=== PATIENT | female | born 1985 | race American Indian/Alaskan Native ===

== ENCOUNTER 2017-05-05 23:34 | Emergency (ER) | payer MEDICAID ==
[2017-05-06] MEDS ORDERED: CLEOCIN 600 MG/50 mL 600 MG/50 ML BAG IV ONE (03:01)
[2017-05-06] MEDS ORDERED: DILAUDID IV ONE (03:01)
[2017-05-06] MEDS ORDERED: ATIVAN IV ONE (03:02)
[2017-05-06] MEDS ORDERED: DILAUDID ONE (03:08)
--- NOTE | 2017-05-06 03:17 | Emergency Department Report ---
ED ENT HPI - General Chief complaint: Dental/Oral Stated complaint: MOUTH PAIN Time Seen by Provider: 05/06/17 02:59 Source: patient Mode of arrival: Ambulatory Limitations: No Limitations - History of Present Illness Initial comments: 31-year-old -[place] female comes in for complaint of an abscess at the mouth. Patient reports that she was seen by her dentist today and was placed on amoxicillin and Tylenol 3. Patient reports that the pain is too much. She says that the abscess is getting larger. - Related Data Previous Rx's Medication Instructions Recorded Last Taken Type Clindamycin [Clindamycin CAP] 300 mg PO Q8H 10 Days #30 cap 05/06/17 Unknown Rx HYDROcodone/ACETAMINOPHEN [[place] 1 each PO Q6H #12 tablet 05/06/17 Unknown Rx 5-325 Tablet] Allergies Allergy/AdvReac Type Severity Reaction Status Date / Time No Known Allergies Allergy Unverified 05/06/17 01:20 ED Dental HPI - General Chief complaint: Dental/Oral Stated complaint: MOUTH PAIN Time Seen by Provider: 05/06/17 02:59 Source: patient Mode of arrival: Ambulatory Limitations: No Limitations - Related Data Previous Rx's Medication Instructions Recorded Last Taken Type Clindamycin [Clindamycin CAP] 300 mg PO Q8H 10 Days #30 cap 05/06/17 Unknown Rx HYDROcodone/ACETAMINOPHEN [[place] 1 each PO Q6H #12 tablet 05/06/17 Unknown Rx 5-325 Tablet] Allergies Allergy/AdvReac Type Severity Reaction Status Date / Time No Known Allergies Allergy Unverified 05/06/17 01:20 ED Review of Systems ROS: Stated complaint: MOUTH PAIN Other details as noted in HPI ED Past Medical Hx - Past Medical History Previous Medical History?: No - Surgical History Past Surgical History?: Yes Additional Surgical History: x3 - Social History Smoking Status: Current Every Day Smoker Substance Use Type: Marijuana - Medications Home Medications: Home Medications Medication Instructions Recorded Confirmed Last Taken Type Clindamycin [Clindamycin CAP] 300 mg PO Q8H 10 Days #30 cap 05/06/17 Unknown Rx HYDROcodone/ACETAMINOPHEN [[place] 1 each PO Q6H #12 tablet 05/06/17 Unknown Rx 5-325 Tablet] ED Physical Exam - General Limitations: No Limitations ED Course Vital Signs 05/06/17 05/06/17 05/06/17 01:20 03:20 04:49 Temperature 98.8 F Pulse Rate 93 H Respiratory 18 18 12 Rate Blood Pressure 132/68 O2 Sat by Pulse 97 Oximetry 05/06/17 05/06/17 05/06/17 04:51 04:55 05:01 Temperature Pulse Rate 86 85 81 Respiratory 8 L 10 L 12 Rate Blood Pressure O2 Sat by Pulse Oximetry 05/06/17 05/06/17 05/06/17 05:05 05:11 05:15 Temperature Pulse Rate 81 83 79 Respiratory 11 L 11 L 13 Rate Blood Pressure 109/75 115/75 O2 Sat by Pulse Oximetry 05/06/17 05/06/17 05/06/17 05:21 05:25 05:30 Temperature Pulse Rate 78 71 73 Respiratory 15 12 14 Rate Blood Pressure 115/75 115/75 115/78 O2 Sat by Pulse Oximetry 05/06/17 05/06/17 05/06/17 05:35 05:41 05:45 Temperature Pulse Rate 79 80 70 Respiratory 12 11 L 12 Rate Blood Pressure 115/78 115/78 109/74 O2 Sat by Pulse Oximetry 05/06/17 05:50 Temperature Pulse Rate 86 Respiratory 13 Rate Blood Pressure 109/74 O2 Sat by Pulse Oximetry ED Medical Decision Making - Lab Data Result diagrams: 05/06/17 04:52 05/06/17 04:52 - Radiology Data Radiology results: report reviewed, image reviewed FINDINGS: There is a soft tissue/fluid collection in the anterior roof of the mouth measuring 15 x 15 millimeters on axial series 3, image 26. There is extension into the left maxilla and periapical lucency involving a lateral left maxillary incisor on axial series 3, image 28. No cervical lymphadenopathy within the imaged field of view. The mucosal spaces of the neck and imaged portion of the brain are unremarkable. Normal spherical shape of the globes. Retro bulbar fat is unremarkable. Imaged portions of the paranasal sinuses and mastoid air cells are clear. No facial fracture. IMPRESSION: Peripherally enhancing structure in the left anterior roof of the mouth communicates with the apex of a left maxillary incisor and measures approximately 15 x 15 millimeters in greatest transaxial dimensions. No calcific/hard palate component is present. Differential diagnosis includes sequela of dental infection/abscess, as well as less likely neoplasm and neuroma. Oral surgery follow-up is suggested. Dr. Berven discussed findings with KELIN Chaney at 0545 central Time on 05/06/2017 immediately following the examination. Transcribed By: MB Dictated By: SANJUANA ROBERTS MD Electronically Authenticated By: SANJUANA ROBERTS MD Signed Date/Time: 05/06/17253 DD/ 3 TD/TT: 05/06/17253 - Medical Decision Making Patient has been evaluated by this provider fast track. As noted the patient has a growth/mass/abscess to the roof of her mouth that is very tender. We tried to do an incision and drained with not much assess then we ordered a CT of the facial bones with contrast. Finding is in her chart. Will place patient on clindamycin 300 mg and pain medication and refer her to [place] oral surgery. Critical care attestation.: If time is entered above; I have spent that time in minutes in the direct care of this critically ill patient, excluding procedure time. ED Disposition Clinical Impression: Dental abscess Disposition: TO HOME OR SELFCARE Is pt being admited?: No Does the pt Need Aspirin: No Condition: Stable Instructions: Dental Abscess (ED) Additional Instructions: Take medication as prescribed. It is very important for you to follow-up with oral surgeon. Prescriptions: Clindamycin [Clindamycin CAP] 300 mg PO Q8H 10 Days #30 cap HYDROcodone/ACETAMINOPHEN [[place] 5-325 Tablet] 1 each PO Q6H #12 tablet Referrals: CL CORDERO [Other] - 3-5 Days [facility] [Outside] - 3-5 Days Forms: Work/School Release Form(ED)
[2017-05-06 05:18] LABS: Basophils % (Auto) 0.5 % (0.0-1.8); Eosinophils # (Auto) 0.1 K/mm3 (0.0-0.4); Eosinophils % (Auto) 1.3 % (0.0-4.3); Hematocrit 37.1 % (30.3-42.9); Hemoglobin 11.9 gm/dl (10.1-14.3); Lymphocytes # (Auto) 2.3 K/mm3 (1.2-5.4); Lymphocytes % (Auto) 26.2 % (13.4-35.0); Mean Corpuscular HGB Conc 32 % (30-34); Mean Corpuscular Hemoglobin 29 pg (28-32); Mean Corpuscular Volume 91 fl (79-97); Monocytes # (Auto) 0.5 K/mm3 (0.0-0.8); Monocytes % (Auto) 5.5 % (0.0-7.3); Platelet Count 276 K/mm3 (140-440); Red Blood Count 4.06 M/mm3 (3.65-5.03); Red Cell Distribution Width 13.9 % (13.2-15.2)
[2017-05-06 05:34] LABS: Alanine Aminotransferase 8 units/L (7-56); Albumin 3.7 g/dL (3.9-5); BUN/Creatinine Ratio 10; Blood Urea Nitrogen 8 mg/dL (7-17); Calcium 8.8 mg/dL (8.4-10.2); Hemolysis Index 9
[2017-05-06] MEDS ORDERED: MOTRIN ONE (06:48)
[2017-05-06] MEDS ORDERED: MOTRIN PO ONE (06:49)
--- NOTE | 2017-05-06 06:56 | Cat Scan Report ---
FINAL REPORT EXAM: CT FACIAL BONES W CON HISTORY: growth on roof of mouth TECHNIQUE: CT images are acquired through the face following intravenous administration of contrast. Transaxial , coronal and sagittal reformations are provided. PRIORS: None. FINDINGS: There is a soft tissue/fluid collection in the anterior roof of the mouth measuring 15 x 15 millimeters on axial series 3, image 26. There is extension into the left maxilla and periapical lucency involving a lateral left maxillary incisor on axial series 3, image 28. No cervical lymphadenopathy within the imaged field of view. The mucosal spaces of the neck and imaged portion of the brain are unremarkable. Normal spherical shape of the globes. Retro bulbar fat is unremarkable. Imaged portions of the paranasal sinuses and mastoid air cells are clear. No facial fracture. IMPRESSION: Peripherally enhancing structure in the left anterior roof of the mouth communicates with the apex of a left maxillary incisor and measures approximately 15 x 15 millimeters in greatest transaxial dimensions. No calcific/hard palate component is present. Differential diagnosis includes sequela of dental infection/abscess, as well as less likely neoplasm and neuroma. Oral surgery follow-up is suggested. Dr. Luna discussed findings with KELIN Chaney at 0545 central Time on 05/06/2017 immediately following the examination.
[2017-05-06 09:27] VITALS: BP 149/87
== END 2017-05-06 08:40 | disposition home or self-care (01) ==
LOC: ED 23:34
DX: K04.7 Periapical abscess without sinus (principal); K12.2 Cellulitis and abscess of mouth; F17.200 Nicotine dependence, unspecified, uncomplicated; F12.10 Cannabis abuse, uncomplicated
CPT/HCPCS: 36415; 70487; 80053; 84703; 85025; 96365; 96375; 99284; J1170; J2060; Q9967

== ENCOUNTER 2017-05-07 10:34 | Emergency (ER) | payer MEDICAID ==
--- NOTE | 2017-05-07 15:44 | Emergency Department Report ---
Abscess Boil HPI - HPI Chief Complaint: Skin/Abscess/Foreign Body Stated Complaint: MOUTH ABSCESS Time Seen by Provider: 05/07/17 15:31 Location: Other (mouth) History: Yes Pain, Yes Purulent Drainage, No Fever, No Numbness, No Foreign Body , No Previous History, No Insect Bite HPI: This is a 31-year-old female nontoxic, well nourished in appearance, no acute signs of distress presents to the ED with c/o of abscess to the roof of the upper mouth x3 days. Patient stated that she was seen by a provider and a incision and drainage has been performed with no purulent drainage. Patient states she also received a CT scan that showed an abscess. Patient stated today she woke up and the abscess started to drain. Patient denies any chest pain, shortness breath, fever, chills, nausea, vomiting, headache, stiff neck, numbness, tingling, facial swelling or difficulty breathing. Patient stated that she is still taking her Clindamycin as directed and prescribed. Home Medications: Previous Rx's Medication Instructions Recorded Last Taken Type Clindamycin [Clindamycin CAP] 300 mg PO Q8H 10 Days #30 cap 05/06/17 Unknown Rx HYDROcodone/ACETAMINOPHEN [[place] 1 each PO Q6H #12 tablet 05/06/17 Unknown Rx 5-325 Tablet] Chlorhexidine Mouthwash [Peridex] 15 ml MM BID #1 bottle 05/07/17 Unknown Rx Allergies/Adverse Reactions: Allergies Allergy/AdvReac Type Severity Reaction Status Date / Time No Known Allergies Allergy Unverified 05/06/17 01:20 ED Review of Systems ROS: Stated complaint: MOUTH ABSCESS Other details as noted in HPI Constitutional: denies: chills, fever Eyes: denies: eye pain, eye discharge, vision change ENT: denies: ear pain, throat pain Respiratory: denies: cough, shortness of breath, wheezing Cardiovascular: denies: chest pain, palpitations Endocrine: no symptoms reported Gastrointestinal: denies: abdominal pain, nausea, diarrhea Genitourinary: denies: urgency, dysuria, discharge Musculoskeletal: denies: back pain, joint swelling, arthralgia Skin: denies: rash, lesions Neurological: denies: headache, weakness, paresthesias Psychiatric: denies: anxiety, depression Hematological/Lymphatic: denies: easy bleeding, easy bruising ED Past Medical Hx - Surgical History Additional Surgical History: x3 - Social History Smoking Status: Current Every Day Smoker Substance Use Type: Marijuana - Medications Home Medications: Home Medications Medication Instructions Recorded Confirmed Last Taken Type Clindamycin [Clindamycin CAP] 300 mg PO Q8H 10 Days #30 cap 05/06/17 Unknown Rx HYDROcodone/ACETAMINOPHEN [[place] 1 each PO Q6H #12 tablet 05/06/17 Unknown Rx 5-325 Tablet] Chlorhexidine Mouthwash [Peridex] 15 ml MM BID #1 bottle 05/07/17 Unknown Rx ED Abscess Boil Physical Exam - Exam General: Vital signs noted. No distress. Alert and acting appropriately. GENERAL: The patient is a well-developed, well-nourished in no apparent distress. Patient is alert and acting appropriately for age. Alert and oriented 3, no apparent distress, normal gait, atraumatic. HEENT: Head is normocephalic and atraumatic. PERRL, Extraocular muscles are intact. Pupils are equal, round, and reactive to light and accommodation. Nares appeared normal. Mouth is well hydrated and without lesions. Mucous membranes are moist. Posterior pharynx clear of any exudate or lesions. Mouth is well hydrated and without lesions. Tonsils not erythematous or swollen. Uvula midline. Tongue elevated. Mucous members are moist. Posterior pharynx clear, no exudate or lesions. Patent airways. NECK: Supple. No carotid bruits. No lymphadenopathy or thyromegaly.nontender. No meningitic signs are noted. LUNGS: Clear to auscultation. Non labor breathing. No intercostal retractions. Symmetrical with respiration, no wheezing, no rales, or crackles. HEART: Regular rate and rhythm without murmur, rubs or gallops. No reproducible. S1, S2 present, regular rate and rhythm without murmur, no rubs, no gallops. ABDOMEN: Soft, nontender, and nondistended. Positive bowel sounds. No hepatosplenomegaly was noted. No guarding or rebound tenderness, negative epigastric bruit. Negative psoas sign, negative anna sign, negative McBurneys sign EXTREMITIES: Without any cyanosis, clubbing, rash, lesions or edema. Peripheral pulses intact. Capillary refill less than 2 seconds. Full range of motion bilaterally. NEUROLOGIC: Cranial nerves II through XII are grossly intact. Alert and oriented x 3. Normal gait. Symmetrical strength and sensation. Reflexes 2+ throughout. Cerebellar testing normal. GCS score of 15. PSYCHIATRIC: Normal affect with no suicidal or homicidal ideations. Size: 2 cm Exam: Yes Normal Neurologic Exam, Yes Normal Circulation, No Tenderness, No Fluctuance, No Surrounding Cellulites/Erythema, No Lymphangitis, No Crepitation , No Heart Murmur Exam: Purulent drainage noted to the abscess of the upper that amount. Swelling has significantly decreased. ED Course Vital Signs 05/07/17 11:32 Temperature 98.7 F Pulse Rate 88 Respiratory 16 Rate Blood Pressure 95/57 O2 Sat by Pulse 100 Oximetry - Reevaluation(s) Reevaluation #1: 05/07/17 15:47 Patient is speaking in full sentences with no signs of distress noted. Critical care attestation.: If time is entered above; I have spent that time in minutes in the direct care of this critically ill patient, excluding procedure time. ED Medical Decision Making - Medical Decision Making This is a 31-year-old female that presents with purulent drainage from the abscess. Patient is stable and was examined by me. The abscess has decreased significantly after the drainage. I continued to squeeze the abscess and received about 3 mls of purulent drainage. Patient was instructed to continue taking antibiotics as prescribed. Patient was instructed Follow-up with a primary care doctor/oral maxillary surgery in 3-5 days or if symptoms worsen and continue return to emergency room as soon as possible. At time time of discharge, the patient does not seem toxic or ill in appearance. No acute signs of distress noted. Patient agrees to discharge treatment plan of care. No further questions noted by the patient. ED Disposition Clinical Impression: Abscess Disposition: DC-01 TO HOME OR SELFCARE Is pt being admited?: No Does the pt Need Aspirin: No Condition: Stable Additional Instructions: Follow-up with a primary care doctor/oral maxillary surgery in 3-5 days or if symptoms worsen and continue return to emergency room as soon as possible. Continue taking antibiotics that was prescribed to during the last visit. Prescriptions: Chlorhexidine Mouthwash [Peridex] 15 ml MM BID #1 bottle Referrals: Jonny CORDERO [Other] - 3-5 Days PRIMARY MD KIARA [Referring] - 3-5 Days RAFY ESTRADA MD [Staff Physician] - 3-5 Days [facility] [Outside] - 3-5 Days [facility] [Outside] - 3-5 Days Forms: Work/School Release Form(ED)
[2017-05-07 15:51] VITALS: BP 128/83
== END 2017-05-07 16:03 | disposition home or self-care (01) ==
LOC: ED 10:34
DX: K12.2 Cellulitis and abscess of mouth (principal); F17.200 Nicotine dependence, unspecified, uncomplicated; F12.10 Cannabis abuse, uncomplicated
CPT/HCPCS: 99281

== ENCOUNTER 2017-05-22 14:42 | Emergency (ER) | payer MEDICAID ==
[2017-05-22 16:33] VITALS: BP 106/59
[2017-05-22] MEDS ORDERED: TORADOL IM ONE (19:15)
--- NOTE | 2017-05-22 19:19 | Emergency Department Report ---
ED Headache HPI - General Chief Complaint: Headache Stated Complaint: BLURRY VISION/ ROBISON Time Seen by Provider: 05/22/17 18:18 Source: patient - History of Present Illness Initial Comments: Patient is 31 years old female history of headache migraine. She stated that she started having headache this morning associated with nasal congestion. Patient stated that she smoke her marijuana that usually help her headache that is not helping this time. Headache is similar to the previous headache. Patient denied any neck stiffness or fever. Patient denied any muscle weakness numbness or tingling sensation. No bowel or bladder incontinence. Patient denied any history of head trauma. Timing/Duration: 24 hours Quality: moderate Head Injury Location: temporal Associated Symptoms: sinus infection. denies: denies symptoms, confusion, fatigue, facial pain, fever/chills, flushing, loss of consciousness, nausea/ vomiting, nasal congestion, nasal drainage, numbness in legs/feet, rash, seizures, stiff neck, vision changes, weakness, other Allergies/Adverse Reactions: Allergies No Known Allergies Allergy (Unverified 05/22/17 16:33) Home Medications: Ambulatory Orders Clindamycin [Clindamycin CAP] 300 mg PO Q8H 10 Days #30 cap 05/06/17 HYDROcodone/ACETAMINOPHEN [[place] 5-325 Tablet] 1 each PO Q6H #12 tablet Chlorhexidine Mouthwash [Peridex] 15 ml MM BID #1 bottle 05/07/17 ED Review of Systems ROS: Stated complaint: BLURRY VISION/ ROBISON Other details as noted in HPI Comment: All other systems reviewed and negative Constitutional: denies: chills, fever ENT: congestion Cardiovascular: denies: chest pain, palpitations Gastrointestinal: denies: abdominal pain, nausea Neurological: headache. denies: weakness, numbness, paresthesias, confusion, abnormal gait, vertigo ED Past Medical Hx - Past Medical History Previous Medical History?: No Additional medical history: hypotension - Surgical History Past Surgical History?: Yes Additional Surgical History: x3 - Social History Smoking Status: Current Every Day Smoker Substance Use Type: Marijuana - Medications Home Medications: Home Medications Medication Instructions Recorded Confirmed Last Taken Type Clindamycin [Clindamycin CAP] 300 mg PO Q8H 10 Days #30 cap 05/06/17 Unknown Rx HYDROcodone/ACETAMINOPHEN [[place] 1 each PO Q6H #12 tablet 05/06/17 Unknown Rx 5-325 Tablet] Chlorhexidine Mouthwash [Peridex] 15 ml MM BID #1 bottle 05/07/17 Unknown Rx ED Physical Exam - General Limitations: No Limitations General appearance: alert, in no apparent distress - Head Head exam: Present: atraumatic, normocephalic, normal inspection - Eye Eye exam: Present: normal appearance - ENT ENT exam: Present: normal exam, normal orophraynx, mucous membranes moist - Neck Neck exam: Present: normal inspection, full ROM - Respiratory Respiratory exam: Present: normal lung sounds bilaterally. Absent: respiratory distress, wheezes, rales, rhonchi, chest wall tenderness, accessory muscle use, decreased breath sounds, prolonged expiratory - Cardiovascular Cardiovascular Exam: Present: regular rate, normal rhythm, normal heart sounds - GI/Abdominal GI/Abdominal exam: Present: soft, normal bowel sounds. Absent: distended, tenderness, guarding, rebound, rigid, mass, bruit, pulsatile mass - Extremities Exam Extremities exam: Present: normal inspection, full ROM - Neurological Exam Neurological exam: Present: alert, oriented X3, CN II-XII intact, normal gait, reflexes normal. Absent: motor sensory deficit - Skin Skin exam: Present: warm, intact, normal color ED Course Vital Signs 05/22/17 16:29 Temperature 98.6 F Pulse Rate 100 H Respiratory 16 Rate Blood Pressure 106/59 O2 Sat by Pulse 98 Oximetry Critical care attestation.: If time is entered above; I have spent that time in minutes in the direct care of this critically ill patient, excluding procedure time. ED Disposition Clinical Impression: Headache Disposition: DC-01 TO HOME OR SELFCARE Is pt being admited?: No Condition: Stable Instructions: Acute Headache (ED)
== END 2017-05-22 22:26 | disposition home or self-care (01) ==
LOC: ED 14:42
DX: R51 Headache (principal); F12.90 Cannabis use, unspecified, uncomplicated
CPT/HCPCS: 96372; 99282; J1885